=== PATIENT | male | born 1975 | race Caucasian/White ===

== ENCOUNTER → 2018-04-16 | Outpatient (CLI) | payer OTHER ==
[~2018-04-16] MED LIST: CLON1TAB4 PO; DOCU-109 PO; GABA600T2 PO; HYDR-2766 PO; TIZA4TAB PO
[2018-04-16 14:47] LABS: BASO % 0 % (0-3); EOS # 0.1 x10^3/uL (0.0-0.7); EOS % 3 % (0-3); HEMATOCRIT 38.7 % (39.0-53.0); HEMOGLOBIN 13.2 g/dL (13.0-17.5); LYMPH # 2.5 x10^3/uL (1.0-4.8); LYMPH % 47 % (24-48); MEAN CORPUSCULAR HEMOGLOBIN 29 pg (25-35); MEAN CORPUSCULAR HGB CONC 34 g/dL (31-37); MEAN CORPUSCULAR VOLUME 84 fL (79-100); MONO # 0.4 x10^3/uL (0.0-1.1); MONO % 8 % (0-9); NEUT # 2.3 x10^3uL (1.8-7.7); NEUT % 42 % (31-73); PLATELET COUNT 211 x10^3/uL (140-400); RED BLOOD COUNT 4.58 x10^6/uL (4.30-5.70); RED CELL DISTRIBUTION WIDTH 13.7 % (11.5-14.5); WHITE BLOOD COUNT 5.4 x10^3/uL (4.0-11.0)
[2018-04-16 15:25] LABS: ALBUMIN 3.6 g/dL (3.4-5.0); ALBUMIN/GLOBULIN RATIO 1.2 (1.0-1.7); CALCIUM 8.6 mg/dL (8.5-10.1); GFR 82.8; POTASSIUM 3.7 mmol/L (3.5-5.1); TOTAL BILIRUBIN 0.3 mg/dL (0.2-1.0); TOTAL PROTEIN 6.5 g/dL (6.4-8.2)
== END | disposition home or self-care (01) ==
LOC: SURGPAT 13:09
PROVIDERS: ATTEND Neurological Surgery
DX: Z01.818 Encounter for other preprocedural examination (principal); M51.16 Intervertebral disc disorders with radiculopathy, lumbar region
CPT/HCPCS: 36415; 80053; 85025; 87641

== ENCOUNTER 2018-04-20 07:04 | Day surgery (SDC) | payer OTHER ==
[~2018-04-20] VITALS: Ht 180.3 cm; Wt 73.5 kg
--- NOTE | 2018-04-20 06:26 | HP ---
ADMIT DATE: 04/19/2018. DATE OF SURGERY: 04/19/2018. HISTORY OF PRESENT ILLNESS: The patient is a pleasant 42-year-old who is having difficulty with low back pain and pain which radiates into both of his hips. The left side is more involved than the right. The pain in the right tends to involve the right buttock and hip laterally as well as the anterior inguinal region. Standing and walking increases that pain. He notes frequently sharp pain, which can radiate into his left posterior thigh and rarely he develops severe pain in the left calf. The left side is much more involved than the right. This problem started about 6 months ago. He has had episodes for many years, however. He says over the course of the last 5 or 6 years he has had 18 epidural steroid injections. His most recent set of injections was done 4 weeks ago without any help. He rates his pain as 7/10. He said it began 6 months ago spontaneously when he was walking and turned around the corner to the left side. He says he has been doing stretches for his legs as well as ice and heat to help in addition to the epidural steroids. He takes [place] 10, meloxicam as well as gabapentin and tizanidine. PAST MEDICAL HISTORY: Headaches or migraines. PAST SURGICAL HISTORY: Right hand surgery in 2000 and umbilical hernia in 2016. FAMILY HISTORY: Noncontributory. SOCIAL HISTORY: Single. Denies substance abuse. Denies current tobacco use. Drinks alcohol 1-2 times per month. Drinks coffee daily. ALLERGIES: No known drug allergies. CURRENT MEDICATIONS: Gabapentin, tizanidine, meloxicam, [place]. REVIEW OF SYSTEMS: A 12-point review of systems was obtained and is noncontributory except that mentioned above. PHYSICAL EXAMINATION: GENERAL APPEARANCE: Alert, pleasant, no acute distress. HEAD: Normocephalic and atraumatic. SKIN: Warm, dry. MUSCULOSKELETAL: Lumbar paraspinal muscle bulk is normal, restricted range of motion of lumbar spine, duct-hx-ltxtteay tenderness of lower lumbar spine with palpation, normal range of motion of the lower extremities bilaterally except for marked restriction of internal and external rotation of the right hip. EXTREMITIES: No clubbing, cyanosis or edema. NEUROLOGIC: Alert and oriented x 3, normal recent and remote memory, strength 5/5 in bilateral lower extremities, sensory was intact to light touch in bilateral lower extremities. Reflexes were present and symmetric in lower extremities bilaterally, negative straight leg raising bilaterally, but with very tight hamstrings bilaterally. Painful antalgic gait favoring his left leg. IMAGING: I reviewed the lumbar MRI scan. On that study, L4-L5, there is disc bulging which is central and left-sided along with neural foraminal narrowing on the left L4-L5. At the next level inferiorly L5-S1, there is posterior disc bulging herniation with compression and elevation of the S1 nerve root. ASSESSMENT/ PLAN: I am not able well explain his right-sided symptoms, although I am concerned there may be a problem in the right hip. On the left side, I do feel that he has nerve root compression and lumbar radiculopathy. My recommendation at this point is to consider lumbar microsurgery at L4-L5 and L5-S1. I have obtained right hip x-rays and we will recommend an orthopedic evaluation for that problem. We will proceed with plans for lumbar surgery. I discussed the procedure and the risks with the patient. He understands. He would like to proceed. We will make the arrangements. AUDELIA MERCADO MD DR: JUAN MANUEL/kip JOB#: [id number] / [id number] KARYNA
[~2018-04-20 07:04] MED LIST changes: +BACITRACIN 50,000 UNIT in IV NORMAL SALINE 1000ML BAG 1,000 ML IRR ONE; +BUPIVAC MPF-EPI 0.5%-1:200000 30 ML VIAL. ONE; -DOCU-109 PO; +GELATIN SPONGE SIZE 100. ONE; +HYDROmorphone 2 MG/ML VIAL IV PRN; +IV RINGERS,LACTATED 1000ML 1,000 ML IV SCH; +KETOROLAC 60 MG/2 ML INJ FOR OR. ONE; +LIDOCAINE 1% PF 2 ML VIAL. ID PRN; +ONDANSETRON PF 4 MG/2 ML VIAL. IV PRN; +PROCHLORPERAZINE 10 MG/2 ML VIAL. IV PRN; +fentaNYL PF VIAL 100 MCG/2 ML VIAL IV PRN
[2018-04-20] MEDS ORDERED: PROPOFOL 0 ML IV ONE (08:03)
[2018-04-20] MEDS ORDERED: fentaNYL PF VIAL 100 MCG/2 ML VIAL ONE (08:03)
[2018-04-20] MEDS ORDERED: PROPOFOL 20 ML IV ONE ×2 (08:03→10:46)
[2018-04-20] MEDS ORDERED: SUCCINYLCHOLINE 200 MG/10 ML VIAL. ONE (08:03)
[2018-04-20] MEDS ORDERED: LIDOCAINE 1% PF 5 ML VIAL. ONE (08:03)
[2018-04-20] MEDS ORDERED: REMIFENTANIL 2 MG VIAL. IV ONE (08:04)
[2018-04-20] MEDS ORDERED: ROCURONIUM 50 MG/5 ML VIAL. ONE (08:04)
[2018-04-20] MEDS ORDERED: DESFLURANE > 120 MINUTES IH ONE (09:26)
[2018-04-20] MEDS ORDERED: DEXAMETHASONE SOD PHOS 20 MG/5 ML VIAL. ONE (09:26)
[2018-04-20] MEDS ORDERED: ONDANSETRON PF 4 MG/2 ML VIAL. ONE (09:27)
[2018-04-20] MEDS ORDERED: PHENYLEPHRINE in 0.9% NACL PF 1 MG/10 ML SYRINGE. IV ONE (09:46)
[2018-04-20] MEDS ORDERED: PROPOFOL 50 ML IV ONE (10:41)
--- NOTE | 2018-04-20 11:16 | DISCH ---
DISCHARGE INSTRUCTIONS Condition on Discharge Condition on Discharge: Stable Activity After Discharge Activity Instructions for Disc: Activity as tolerated, Avoid exertion Other activity instructions: no driving for a week Bathing Instructions: Shower-keep dressing dry Lifting Instructions after Dis: No heavy lifting, No pulling or pushing, Do not lift >10 pounds Diet after Discharge Additional Diet Restrictions: resume home diet Wound Incision Care Wound/Incision Care: Ice to area for comfort Other wound/incision instructi: may remove dressing in 48 hrs if dry then may shower, no soaking Contacting the after DC Call your doctor for: Concerns you may have Follow-Up Follow up with: Dr. Mercado's nurse [phone] AUDELIA MERCADO MD Apr 20, 2018 11:16
[2018-04-20] MEDS ORDERED: DOCU-109 PO (11:18)
[2018-04-20] MEDS ORDERED: MORPHINE SULFATE 2 MG/ML VIAL. ONE (11:38)
[2018-04-20] MEDS: fentaNYL PF VIAL 100 MCG/2 ML VIAL IV PRN ×2 (11:40→11:58)
[2018-04-20] MEDS: MORPHINE SULFATE 2 MG/ML VIAL. IV PRN ×2 (11:41→11:58)
[2018-04-20] MEDS ORDERED: TIZA4TAB PO (11:44)
[2018-04-20] MEDS ORDERED: HYDROcodone/APAP 10/325 1 TAB TABLET ONE (12:05)
[2018-04-20 12:14] VITALS: BP 121/83
[2018-04-20] MEDS ORDERED: HYDROcodone/APAP 10/325 1 TAB TABLET PO ONE (12:15)
--- NOTE | 2018-04-23 18:36 | OP ---
DATE OF SURGERY: 04/20/2018 PREOPERATIVE DIAGNOSIS: Herniated lumbar disc, L4-L5 and L5-S1 left with left lumbar radiculopathy. POSTOPERATIVE DIAGNOSIS: Herniated lumbar disc, L4-L5 and L5-S1 left with left lumbar radiculopathy. OPERATION PERFORMED: Hemilaminotomy and microdiscectomy L4-L5 and L5-S1, left. The operation was done with EMG monitoring, SSEP monitoring, fluoroscopy, microscopic dissection. SURGEON: Brice Mercado M.D. CUSTOMER EXPERIENCE ANALYST: MIGUE Kee assisted with the surgery. She assisted with the microdiscectomy as well as the closure. OPERATIVE INDICATIONS: The patient is a pleasant 42-year-old man who developed intractable back and left leg pain. He also had pain in the right buttock and hip region, but I felt this was primarily due to a problem in the hip. On the left side, he had radiculopathy with lower back, left hip, and inguinal pain as well as pain which radiated to the left thigh and leg. On imaging studies, he had above-mentioned findings and I recommended 2-level lumbar microdecompressive surgery. I spoke to him about the surgery and the risks involved. He understood and wished to go ahead. DESCRIPTION OF PROCEDURE: Following general endotracheal anesthesia, the patient was positioned prone on the Gabe table. Lumbar region prepped and draped in standard fashion. SHAQUILLE hose and AV impulse boots were applied for DVT prophylaxis. The microscope was draped. Fluoroscopy was draped and brought into field. Monitoring was established. Ancef 2 grams was given less than 1 hour prior to initiation of the surgery. Using fluoroscopic guidance, an incision was made extending from L4 to S1. I dissected down the skin and subcutaneous tissue, reflected the paraspinal muscles and placed a [place] microdisk retractor. I directed my attention to L4-L5. I brought in the high speed air drill and the microscope and using microscopic technique, I burred down a generous hemilaminotomy. I then peeled away thickened ligamentum flavum, performed a partial foraminotomy. I exposed the dura and the exiting root. I gently retracted the root medially. There was disc bulging and I incised the annulus and ligament and performed discectomy with pituitary rongeurs. At this level, the disc was partially calcified, but as I worked to remove disc material, the region became very well decompressed. Following this, I explored carefully, I assured myself there were no retained fragments, the root was quite free. Hemostasis was excellent and I did use a bipolar cautery as well as bone wax where necessary. I then moved down to L5-S1 and in a similar fashion burred down a generous hemilaminotomy. I trimmed away ligamentum flavum. I exposed the dura and the exiting root and performed a partial foraminotomy. I gently retracted the root medially. There were a number of epidural veins. which I coagulated and then there was a disc bulge and I incised the ligament and annulus and removed a moderate subligamentous disc herniation and then entered into the disc space and performed a discectomy. The region became very well decompressed. I irrigated copiously, after I completed my discectomy. I explored carefully, the root was very free. I removed the retractor after I assured myself of excellent hemostasis. I obtained hemostasis in the muscle and I irrigated again and closed the fascia, subcutaneous tissue in separate layers and closed the skin with a 4-0 subcuticular stitch. The operation went very well and the patient was taken to the Recovery Room in excellent condition. I was quite pleased with the surgery. BRICE MERCADO MD DR: JUAN MANUEL/kip JOB#: [id number] / [id number] KARYNA
--- NOTE | 2018-04-23 23:07 | PATHOLOGY ---
[facility] Accession Number: [id number] . 01 Material submitted: . LUMBAR DISC AND DECOMPRESSION . 01 Clinician provided ICD-10: M51.27 . 01 Clinical history: . Lumbar herniated disc and radiculopathy . 02 Diagnosis: "Lumbar disc and decompression", discectomy and decompression: - Discectomy showing intervertebral disc with reactive and degenerative changes. - Decompression/laminectomy showing decalcified bone, articular cartilage, periosteum and fibroadipose connective tissue with reactive and degenerative changes. . (CLW:jeni; 04/23/2018) MBR/04/23/2018 . 02 Electronically signed: . Renae Devries MD, Pathologist NPI- [id number] . 01 Gross description: . Received in formalin labeled "Tim Nelson, lumbar decompression and disc," are several pieces of glistening, fibrous tissue measuring 3.0 x 2.0 x 1.5 cm in aggregate dimensions, containing small fragments of possible bone. The tissue submitted representatively in cassette A1, following decalcification. (TSD; 04/20/2018) TOB/TOB . 02 Pathologist provided ICD-10: M51.36, M54.16 . 02 CPT . 122945, 642887, [id number] Specimen Comment: A courtesy copy of this report has been sent to Specimen Comment: [phone], . Specimen Comment: Report sent to / DR BEE Performed at: 01 [facility] [address], [place], [place] [id number] MD Daniel Rose MD Phone: [phone] Performed at: 02 [facility] [address], [place] [id number] MD Isaías Weller MD Phone: [phone]
== END 2018-04-20 13:20 | disposition home or self-care (01) ==
LOC: SURG 07:04 → EDUNIT# 08:30 → SURG 13:20
PROVIDERS: ATTEND Neurological Surgery
DX: M51.16 Intervertebral disc disorders with radiculopathy, lumbar region (principal); Z98.890 Other specified postprocedural states; Z79.899 Other long term (current) drug therapy; Z72.89 Other problems related to lifestyle
CPT/HCPCS: 63030; 88304; 88311; 97162; 97530; A7015; G8978; G8979; G8980; J0330; J0690; J0780; J1100; J1885; J2270; J2370; J2405; J2704; J3010; J3490; J7030; J7120; 76000